=== PATIENT | female | born 1990 | race Caucasian/White ===

== ENCOUNTER 2018-04-21 18:47 | Emergency (ER) | payer OTHER ==
[2018-04-21 19:06] VITALS: BP 133/87; PULSE 115; TEMP 98.4; BMI 28.3
--- NOTE | 2018-04-21 19:06 | PDOC ---
History of Present Illness - History of Present Illness Initial Comments: 04/21/18 19:22 The patient is a 27 year old female, with no significant past medical history, who presents to the emergency department with acute onset of upper abdominal pain (6/10 in severity) with associated nausea, lightheadedness, and sweats around 3PM while seated at work. She states she abdominal pain is now a 2/10, localized, and intermittent. She denies taking anything for her abdominal pain. She reportedly experienced nausea earlier but denies nausea now. She states she felt her abdominal pain was gas, and reports passing flatulence today. She states she was referred from the [facility] for r/o appendicitis because she had RLQ tenderness on their exam. She states she is sexually active without protection. She states she was taking oral control for 2 years, however, started taking it irregularly in February which prompted spotting between her periods. She has not taking control since. She denies any bleeding between her LMP on 04/05 and now. The patient denies chest pain, shortness of breath, headache and dizziness. The patient denies fever, chills, vomit, diarrhea and constipation. The patient denies dysuria, frequency, urgency and hematuria. The patient denies STD history. PAST MEDICAL HISTORY: no significant history PAST SURGICAL HISTORY:adenoid removal (child) FAMILY HISTORY: no pertinent history SOCIAL HISTORY: Pt is employed. marijuana, 3 glasses of wine a week, uses 4 cartridges for her Juul a week MEDICATIONS: reviewed ALLERGIES: As per nursing notes General: (+) sweats. No fevers or chills, no weakness, no weight loss HEENT: No change in vision. No sore throat,. No ear pain CardioVascular: No chest pain or shortness of breath Respiratory:No cough, or wheezing. Gastrointestinal: (+) epigastric pain, nausea, No vomiting, diarrhea or constipation, No rectal bleeding Genitourinary: No dysuria, hematuria, or frequency Musculoskeletal: No joint or muscle pain or swelling Neurologic: No headache, vertigo, dizziness or loss of consciousness Psychiatric: nor depression Skin: No rashes or easy bruising Endocrine: no increased thirst or abnormal weight change Allergic: no skin or latex allergy All other systems reviewed and normal General: Well-nourished well-developed individual, no acute distress HEENT: Throat: Normal, tonsils normal, no erythema or exudate Neck: Supple, no meningeal signs, no lymphadenopathy Eyes::Pupils equal reactive and round, extraocular motion intact Chest: Nontender to palpation Cardiac: S1-S2 normal, regular rate and rhythm, no murmurs rubs or gallops Respiratory: Lungs clear to auscultation bilateral Abdomen: (+)mild epigastric and right adnexal tenderness to deep palpation. Soft , nondistended, normal bowel sounds, nontender to palpation diffusely Extremities: Warm, dry, no cyanosis, clubbing, or edema Skin: No rashes Neuro: Alert and oriented x3, nonfocal exam, grossly intact, normal gait Psych: Normal mood and affect Pelvic: (+) small amount of yellow discharge in vault. cervix is normal in appearance. no CMT. R adnexal discomfort on palpation. L adnexa nontender. Documentation prepared by Sabrina Cook, acting as medical cash poster for Lamont Soto MD <Sabrina Cook - Last Filed: 04/21/18 21:07> - General History Source: Patient Exam Limitations: No Limitations - History of Present Illness Initial Comments: A portion of this note was documented by scribe services under my direction. I have reviewed the details of the note, within reason, and agree with the documentation with the following case summary and management plan written by me. Patient treated in the ED. Nursing notes are reviewed and incorporated into the medical decision-making. Vital signs reviewed. 04/21/18 19:55 Assessment and plan: This is 27-year-old female who comes in complaining of initially epigastric and now lower abdominal pain. Patient is midcycle in her menstrual cycle. Patient recently went off control pills area patient otherwise is healthy denies any nausea vomiting or diarrhea fevers or chills. Patient has had the abdominal pain for approximately 4 hours now. Basic workup initiated including CBC, comp, urine test 04/21/18 21:11 Reevaluation patient said her pain is completely resolved. Patient has normal white count and normal chemistries Patient's ultrasound did show some free fluid in the pelvis but otherwise normal Patient's symptoms are most consistent with a ruptured ovarian cyst, her blood work is normal and she is feeling better so patient discharged home. Patient's pelvic exam was normal so patient will wait for chlamydia and gonorrhea test results and not be treated at this time <Lamont Soto I - Last Filed: 04/21/18 21:17> - General Chief Complaint: Pain Stated Complaint: ABDOMINAL PAIN Time Seen by Provider: 04/21/18 19:05 Past History <Sabrina Cook - Last Filed: 04/21/18 21:07> <Lamont Soto I - Last Filed: 04/21/18 21:17> - Past Medical History Allergies/Adverse Reactions: Allergies Allergy/AdvReac Type Severity Reaction Status Date / Time No Known Allergies Allergy Verified 04/21/18 18:49 Home Medications: Ambulatory Orders NK [No Known Home Medication] 04/21/18 *Physical Exam - Vital Signs Last Vital Signs Temp Pulse Resp BP Pulse Ox 98.4 F 115 H 16 133/87 99 04/21/18 18:48 04/21/18 18:48 04/21/18 18:48 04/21/18 18:48 04/21/18 18:48 <Sabrina Cook - Last Filed: 04/21/18 21:07> Moderate Sedation - Procedure Monitoring Vital Signs: Procedure Monitoring Vital Signs Temperature 98.4 F 04/21/18 18:48 Pulse Rate 115 H 04/21/18 18:48 Respiratory Rate 16 04/21/18 18:48 Blood Pressure 133/87 04/21/18 18:48 O2 Sat by Pulse Oximetry (%) 99 04/21/18 18:48 <Sabrina Cook - Last Filed: 04/21/18 21:07> ED Treatment Course - LABORATORY CBC & Chemistry Diagram: 04/21/18 19:45 04/21/18 19:45 <Sabrina Cook - Last Filed: 04/21/18 21:07> - LABORATORY CBC & Chemistry Diagram: 04/21/18 19:45 04/21/18 19:45 <Lamont Soto I - Last Filed: 04/21/18 21:17> *DC/Admit/Observation/Transfer <Sabrina Cook - Last Filed: 04/21/18 21:07> - Discharge Dispostion Decision to Admit order: No <Lamont Soto I - Last Filed: 04/21/18 21:17> Diagnosis at time of Disposition: Pelvic pain - Discharge Dispostion Disposition: HOME Condition at time of disposition: Good - Referrals Schedule a call back: call patient with results - Patient Instructions Additional Instructions: Tylenol or Motrin as needed for pain. Your blood work was normal. Your ultrasound did show some fluid in your pelvis most likely consistent with midcycle pain or ruptured small ovarian cyst. We will call you with the results of your pelvic test for STDs. Return to the emergency department immediately with ANY new, persistent or worsening symptoms. Continue any medications as previously prescribed by your physician. You should follow up with your primary doctor as soon as possible regarding today's emergency department visit. . Please make sure your doctor reviews the results of your emergency evaluation. Thank you for coming to the Emergency Department today for your care. It was a pleasure to see you today. Please note that your evaluation is INCOMPLETE until you follow-up with your doctor.
[2018-04-21] MEDS ORDERED: SODIUM CHLORIDE 1,000 ML IV ONE (19:16)
[2018-04-21 20:05] LABS: BASO % 0.4 % (0-2.0); EOS % 0.4 % (0-4.5); HEMATOCRIT 45.4 % (32.4-45.2); HEMOGLOBIN 14.9 GM/dl (10.7-15.3); LYMPH % 27.4 % (8-40); MCH 30.3 pg (25.7-33.7); MCHC 32.9 g/dl (32.0-36.0); MEAN CELL VOLUME 92.2 fl (80-96); MONO % 4.8 % (3.8-10.2); PLATELET COUNT 343 K/MM3 (134-434); RBC 4.93 M/mm3 (3.60-5.2); RDW 12.7 % (11.6-15.6)
[2018-04-21 20:15] LABS: ALBUMIN 4.6 g/dl (3.5-5.0); ALK PHOS 40 U/L (32-92); ANION GAP 10 MMOL/L (8-16); BLOOD UREA NITROGEN 11 mg/dl (7-18); CALCIUM 9.5 mg/dl (8.4-10.2); CHLORIDE 105 mmol/L (98-107); CO2 22 mmol/L (22-28); CREATININE 0.7 mg/dl (0.6-1.3); GLUCOSE,RANDOM 90 mg/dl (74-106); POTASSIUM 4.1 mmol/L (3.5-5.1); SGOT/AST 39 U/L (10-42); SGPT/ALT 39 U/L (10-40); SODIUM 137 mmol/L (136-145); TOT PROT 7.5 g/dl (6.4-8.3)
[2018-04-21 20:39] LABS: PH,URINE 5.5 (4.5-8); URINE APPEARANCE Clear; URINE BILIRUBIN Negative (NEGATIVE); URINE COLOR Yellow; URINE GLUCOSE (UA) Negative (NEGATIVE); URINE KETONE 2+ (NEGATIVE); URINE LEUK ESTERASE Negative (NEGATIVE); URINE NITRITE Negative (NEGATIVE); URINE PROTEIN Negative (NEGATIVE); URINE UROBILINOGEN 0.2 (0.2-1.0)
[2018-04-21 22:13] LABS: URINE RBC 0-2 /hpf (0-3); URINE WBC 0-1 (0-5)
== END 2018-04-21 21:24 | disposition home or self-care (01) ==
LOC: FER 18:47
PROC: 3E0337Z Introduction of Electrolytic and Water Balance Substance into Peripheral Vein, Percutaneous Approach (ICD-10-PCS; principal; 2018-04-21)
DX: R10.2 Pelvic and perineal pain (principal)
CPT/HCPCS: 36415; 76856-TC; 80053; 81003; 81015; 84703; 85025; 87491; 87591; 99284-25; J7030

== ENCOUNTER 2019-01-03 00:37 | Emergency (ER) | payer OTHER ==
[2019-01-03] MEDS ORDERED: DIPHTH,PERTUSS(ACELL),TET 0.5 ML DISP.SYRIN IM ONE ×2 (00:40→00:46)
[2019-01-03 00:43] VITALS: BP 128/86; PULSE 76; TEMP 99; BMI 27.4
--- NOTE | 2019-01-03 00:59 | PDOC ---
History of Present Illness - General Chief Complaint: Injury Stated Complaint: LACERATION LEFT MIDDLE FINGER Time Seen by Provider: 01/03/19 00:38 History Source: Patient Exam Limitations: No Limitations - History of Present Illness Initial Comments: 01/03/19 01:04 This is a 28-year-old female brought in by her for evaluation of a finger laceration. Patient went to grab a bottle wine that was falling out of the refrigerator when it slipped out of her hands shattered and cut her left middle finger. Patient's tetanus is approximately 9-10 years ago. Patient otherwise denies any other injuries and denies any sensation of foreign body in the laceration. Allergies: as per nursing notes Past Medical History: none Social history: Lives with family. No smoking. No alcohol. No illicit drugs. Surgical history: None General: No fevers or chills, no weakness, no weight loss HEENT: No change in vision. No sore throat,. No ear pain CardioVascular: no chest discomfort. No shortness of breath Respiratory:No cough, or wheezing. Gastrointestinal: no nausea, vomiting, diarrhea or constipation, No rectal bleeding Genitourinary: No dysuria, hematuria, or frequency Musculoskeletal: No joint or muscle pain or swelling finger laceration as per history of present illness Neurologic: No headache, vertigo, dizziness or loss of consciousness Psychiatric: nor depression Skin: No rashes or easy bruising Endocrine: no increased thirst or abnormal weight change Allergic: no skin or latex allergy All other systems reviewed and normal GENERAL: The patient is awake, alert, and fully oriented, in no acute distress. HEAD: Normal with no signs of trauma. EYES: Pupils equal, round and reactive to light, extraocular movements intact, sclera anicteric, conjunctiva clear. EXTREMITIES:atraumatic, Normal range of motion, no edema. NEUROLOGICAL: Normal speech, normal gait. PSYCH: Normal mood, normal affect. SKIN: Warm, Dry, normal turgor, no rashes or lesions noted. Procedure note laceration repair. Laceration was cleaned and anesthetized with 1% lidocaine no epinephrine via local infiltration. There was a small flap of devitalized tissue that was removed Laceration was closed with total of 5 sutures of 4-0 Ethilon. Simple interrupted. Bacitracin and sterile dressing was applied patient tolerated well Past History - Past Medical History Allergies/Adverse Reactions: Allergies Allergy/AdvReac Type Severity Reaction Status Date / Time No Known Allergies Allergy Verified 01/03/19 00:38 Home Medications: Ambulatory Orders NK [No Known Home Medication] 04/21/18 COPD: No - Suicide/Smoking/Psychosocial Hx Smoking History: Current every day smoker Have you smoked in the past 12 months: Yes 'Breaking Loose' booklet given: 04/21/18 Hx Alcohol Use: Yes (3X A WEEK) Drug/Substance Use Hx: Yes (MARIJUANA) *DC/Admit/Observation/Transfer Diagnosis at time of Disposition: Finger laceration Qualifiers: Encounter type: initial encounter Finger: middle finger Damage to nail status: without damage Foreign body presence: without foreign body Laterality: left Qualified Code(s): S61.213A - Laceration without foreign body of left middle finger without damage to nail, initial encounter - Discharge Dispostion Disposition: HOME Condition at time of disposition: Stable Decision to Admit order: No - Referrals - Patient Instructions Printed Discharge Instructions: DI for Laceration Repair -- Simple Additional Instructions: Suture removal in one week clean the area once or twice a day with little peroxide and reapply the bacitracin for the first 2-3 days after that you can leave it open and lesser working in an dirty environment. Keep it dry for the next 24-48 hours. Return to the emergency department immediately with ANY new, persistent or worsening symptoms. Continue any medications as previously prescribed by your physician. You should follow up with your primary doctor as soon as possible regarding today's emergency department visit. . Please make sure your doctor reviews the results of your emergency evaluation. Thank you for coming to the Emergency Department today for your care. It was a pleasure to see you today. Please note that your evaluation is INCOMPLETE until you follow-up with your doctor. . - Post Discharge Activity
== END 2019-01-03 01:06 | disposition home or self-care (01) ==
LOC: FER 00:37
PROC: 3E0234Z Introduction of Serum, Toxoid and Vaccine into Muscle, Percutaneous Approach (ICD-10-PCS; principal; 2019-01-03)
PROC: 0HQGXZZ Repair Left Hand Skin, External Approach (ICD-10-PCS; 2019-01-03)
DX: S61.213A Laceration without foreign body of left middle finger without damage to nail, initial encounter (principal); W25.XXXA Contact with sharp glass, initial encounter; Y93.89 Activity, other specified; Y92.000 Kitchen of unspecified non-institutional (private) residence as the place of occurrence of the external cause; F17.210 Nicotine dependence, cigarettes, uncomplicated
CPT/HCPCS: 90715; 99281-25

== ENCOUNTER 2019-01-11 05:54 | Emergency (ER) | payer OTHER ==
[2019-01-11 06:00] VITALS: BP 127/73; PULSE 97; TEMP 97.7; BMI 26.5
--- NOTE | 2019-01-11 06:20 | PDOC ---
Suture Removal/Wound Check HPI - History of Present Illness Chief Complaint: Suture/Staple Removal(Here) Stated Complaint: SUTURE REMOVAL Time Seen by Provider: 01/11/19 05:57 - Onset of Previous Treatment Comment:: 01/11/19 06:22 This 28 y.o woman without significant PMH presents for suture removal 7 days after wound repair. Patient presented here after she cut left middle finger when she grasped a wine bottle that was falling out of refrigerator and bottle broke. wound was repaired with 5 interrupted sutures. Patient reports no difficulty in healing except mild inability to fully extend finger at level of laceration(wound is on palmar aspect of DIP joint). No discharge /redness noted from wound Past History - Past Medical History Allergies/Adverse Reactions: Allergies Allergy/AdvReac Type Severity Reaction Status Date / Time No Known Allergies Allergy Verified 01/11/19 05:55 Home Medications: Ambulatory Orders NK [No Known Home Medication] 04/21/18 COPD: No - Immunization History Td Vaccination: Yes - Psycho Social/Smoking Cessation Hx Smoking History: Current every day smoker Have you smoked in the past 12 months: Yes Information on smoking cessation initiated: Yes 'Breaking Loose' booklet given: 01/11/19 Hx Alcohol Use: Yes (3 X A WEEK) Drug/Substance Use Hx: Yes (MARIJUANA) *Physical Exam - Vital Signs Last Vital Signs Temp Pulse Resp BP Pulse Ox 97.7 F 97 H 15 127/73 100 01/11/19 05:56 01/11/19 05:56 01/11/19 05:56 01/11/19 05:56 01/11/19 05:56 - Physical Exam Comments: Left 3rd finger- healing wound palmar aspect of DIP joint 5 interrupted sutures removed without difficulty steristrips applied Discharge - Discharge Information Problems reviewed: Yes Clinical Impression/Diagnosis: Visit for suture removal Condition: Stable Disposition: HOME - Follow up/Referral - Patient Discharge Instructions Patient Printed Discharge Instructions: DI for Suture Removal Additional Instructions: protect wound as needed(neosporin +bandaid) but you can leave open if preferred can immerse wound return or see your doctor if area is red/painful/swollen - Post Discharge Activity
== END 2019-01-11 06:34 | disposition home or self-care (01) ==
LOC: FER 05:54
DX: Z48.02 Encounter for removal of sutures (principal)
CPT/HCPCS: 99281-25